=== PATIENT | female | born 1980 | race Caucasian/White ===

== ENCOUNTER 2025-02-02 11:51 | Emergency (ER) | payer MEDICARE ==
[~2025-02-02] VITALS: Ht 165.1 cm; Wt 73.0 kg
[2025-02-02 11:57] VITALS: O2SAT 98
[2025-02-02] MEDS: ASPIRIN 81MG TABLET PO ONE (12:27)
[2025-02-02 12:36] LABS: BASOPHILS % 0.7 % (0.0-2.0); EOSINOPHILS % 0.9 % (0.0-5.0); HEMATOCRIT. 32.8 % (36.0-48.0); HEMOGLOBIN. 10.7 g/dL (12.0-16.0); LYMPHOCYTES % 25.2 % (20.0-50.0); MEAN PLATELET VOLUME 8.6 fl (7.4-10.4); MONOCYTES % 4.7 % (2.0-8.0); NEUTROPHILS % 68.5 % (40.0-76.0); PLATELET 301 x1000/uL (130-400); RED BLOOD CELL COUNT 4.26 mill/uL (4.2-5.4); RED CELL DISTRIBUTION WIDTH 15.3 % (11.6-14.6)
[2025-02-02 12:52] LABS: INR 0.9
[2025-02-02 12:57] LABS: CREATININE 0.6 mg/dL (0.6-1.0); TROPONIN I HIGH SENSITIVITY < 4 ng/L (3.0-34); UREA NITROGEN BLOOD 8 mg/dL (9-23)
[2025-02-02 13:09] LABS: HCG SCREEN NEGATIVE
[2025-02-02] MEDS: SODIUM CHLORIDE 0.9% 1,000 ML IV ONE (13:27)
[2025-02-02] MEDS ORDERED: DEXTROSE 50% WATER 50ML SYRINGE IV PRN (13:30)
[2025-02-02] MEDS: INSULIN LISPRO 100 UNITS/ML SUBCUT STA (14:35)
[2025-02-02 14:39] LABS: TROPONIN I HIGH SENSITIVITY 5 ng/L (3.0-34)
[2025-02-02 15:15] VITALS: BP 125/81; PULSE 101; RESP 11; TEMP 36.9; O2SAT 98
== END 2025-02-02 15:16 | disposition home or self-care (01) ==
LOC: ER 11:51
DX: R07.89 Other chest pain (principal); E11.65 Type 2 diabetes mellitus with hyperglycemia; Z90.49 Acquired absence of other specified parts of digestive tract
CPT/HCPCS: 80048; 82962; 84703; 85025; 85610; 85730; 84484; 36415; 71045; 93005; 96360; 96372; 99285; Z7610; J1815; J7030